=== PATIENT | male | born 1980 | race Caucasian/White ===

== ENCOUNTER 2018-02-04 16:39 | Emergency (ER) | payer OTHER ==
[~2018-02-04] VITALS: Ht 180.3 cm; Wt 70.3 kg
[2018-02-04 16:44] VITALS: Ht 180.3 cm; Wt 70.3 kg
[2018-02-04 20:58] LABS: BASOPHIL % 0.4 % (0-2); RED CELL DISTRIBUTION WIDTH 12.7 % (11.5-14.5)
[2018-02-04 21:00] LABS: PLATELET COUNT 477 x10^3mcL (130-400)
[2018-02-04 21:13] LABS: ALT/SGPT 29 U/L (16-63); CALCIUM 8.9 mg/dL (8.5-10.1); CHLORIDE SERUM 94 mmol/L (98-107); CREATININE SERUM 1.1 mg/dL (0.7-1.3); GFR1 > 60 mL/min; SODIUM SERUM 132 mmol/L (136-145)
[2018-02-04 21:14] LABS: ALKALINE PHOSPHATASE 170 U/L (46-116); AST/SGOT 20 U/L (15-37); BILIRUBIN TOTAL 0.48 mg/dL (0.20-1.00); CARBON DIOXIDE 27.7 mmol/L (21-32); LIPASE 56 IU/L (73-393); POTASSIUM SERUM 4.8 mmol/L (3.5-5.1); TOTAL PROTEIN, SERUM 7.1 g/dL (6.4-8.2)
[2018-02-04 21:16] LABS: ALBUMIN 2.4 g/dL (3.4-5.0); AMYLASE 12 U/L (25-115)
[2018-02-04 21:18] LABS: GLUCOSE SERUM 500 mg/dL (74-106)
[2018-02-04 23:27] VITALS: BP 129/88
== END 2018-02-04 23:27 | disposition home or self-care (01) ==
LOC: ED 16:39
PROVIDERS: Emergency Medicine
DX: L08.89 Other specified local infections of the skin and subcutaneous tissue (principal); E11.9 Type 2 diabetes mellitus without complications; Z79.4 Long term (current) use of insulin
CPT/HCPCS: 82962; 83880; J0690; J1815; J1885; J7030

== ENCOUNTER 2019-07-01 17:30 | Emergency (ER) | payer SELFPAY ==
[~2019-07-01] VITALS: Ht 180.3 cm; Wt 75.3 kg
[2019-07-01 17:53] VITALS: Ht 180.3 cm; Wt 75.3 kg
[2019-07-01 18:42] LABS: BASOPHIL % 0.3 % (0-2); PLATELET COUNT 300 x10^3mcL (130-400); RED CELL DISTRIBUTION WIDTH 12.5 % (11.5-14.5)
[2019-07-01 19:18] LABS: ALKALINE PHOSPHATASE 136 U/L (46-116); ALT/SGPT 38 U/L (16-63); AST/SGOT 13 U/L (15-37); BILIRUBIN TOTAL 0.4 mg/dL (0.20-1.00); CHLORIDE SERUM 91 mmol/L (98-107); CREATININE SERUM 1.5 mg/dL (0.7-1.3); GFR1 55 mL/min; POTASSIUM SERUM 4.3 mmol/L (3.5-5.1); SODIUM SERUM 125 mmol/L (136-145)
[2019-07-01 19:19] LABS: ALBUMIN 2.7 g/dL (3.4-5.0)
[2019-07-01 19:20] LABS: GLUCOSE SERUM 712 mg/dL (74-106)
[2019-07-01 21:54] VITALS: BP 110/61
== END 2019-07-01 21:50 | disposition left against medical advice (07) ==
LOC: ED 17:30
PROVIDERS: Emergency Medicine
DX: L03.113 Cellulitis of right upper limb (principal); E11.65 Type 2 diabetes mellitus with hyperglycemia
CPT/HCPCS: 82962; J2543; J3370; J7030; J7040; J7050

== ENCOUNTER 2019-08-05 12:23 | Emergency (ER) | payer SELFPAY ==
[~2019-08-05] VITALS: Ht 180.3 cm; Wt 72.6 kg
[2019-08-05 12:35] VITALS: Ht 180.3 cm; Wt 72.6 kg
[2019-08-05 14:19] LABS: BASOPHIL % 0.3 % (0-2); PLATELET COUNT 341 x10^3mcL (130-400); RED CELL DISTRIBUTION WIDTH 12.7 % (11.5-14.5)
[2019-08-05 14:25] LABS: microscopic required? NO
[2019-08-05 14:33] LABS: ALKALINE PHOSPHATASE 167 U/L (46-116); ALT/SGPT 32 U/L (16-63); AST/SGOT 12 U/L (15-37); BILIRUBIN TOTAL 0.24 mg/dL (0.20-1.00); CALCIUM 8.2 mg/dL (8.5-10.1); CARBON DIOXIDE 29.8 mmol/L (21-32); CHLORIDE SERUM 94 mmol/L (98-107); CREATININE SERUM 1.2 mg/dL (0.7-1.3); GFR1 > 60 mL/min; POTASSIUM SERUM 4.3 mmol/L (3.5-5.1); SODIUM SERUM 131 mmol/L (136-145); TOTAL PROTEIN, SERUM 7.3 g/dL (6.4-8.2)
[2019-08-05 14:34] LABS: ALBUMIN 3.2 g/dL (3.4-5.0)
[2019-08-05 14:36] LABS: GLUCOSE SERUM 516 mg/dL (74-106)
[2019-08-05 14:57] LABS: UA SPECIFIC GRAVITY <=1.005 (1.005-1.035); urine erythrocyte NEGATIVE (NEGATIVE)
[2019-08-05 16:03] VITALS: BP 119/75
== END 2019-08-05 16:03 | disposition home or self-care (01) ==
LOC: ED 12:23
PROVIDERS: Emergency Medicine
DX: L02.512 Cutaneous abscess of left hand (principal); E11.65 Type 2 diabetes mellitus with hyperglycemia
CPT/HCPCS: 82962; J7030

== ENCOUNTER 2019-09-11 12:39 | Emergency (ER) | payer MEDICAID ==
[~2019-09-11] VITALS: Ht 180.3 cm; Wt 68.9 kg
[2019-09-11 12:52] VITALS: Ht 180.3 cm; Wt 68.9 kg
[2019-09-11 14:03] LABS: BASOPHIL % 0.4 % (0-2); PLATELET COUNT 313 x10^3mcL (130-400); RED CELL DISTRIBUTION WIDTH 12.3 % (11.5-14.5)
[2019-09-11 14:34] LABS: ALKALINE PHOSPHATASE 188 U/L (46-116); ALT/SGPT 58 U/L (16-63); AST/SGOT 27 U/L (15-37); BILIRUBIN TOTAL 0.4 mg/dL (0.20-1.00); CALCIUM 8.1 mg/dL (8.5-10.1); CARBON DIOXIDE 23.4 mmol/L (21-32); CHLORIDE SERUM 93 mmol/L (98-107); CREATININE SERUM 1.1 mg/dL (0.7-1.3); GFR1 > 60 mL/min; POTASSIUM SERUM 4.4 mmol/L (3.5-5.1); SODIUM SERUM 128 mmol/L (136-145); TOTAL PROTEIN, SERUM 6.5 g/dL (6.4-8.2)
[2019-09-11 14:37] LABS: ALBUMIN 3.1 g/dL (3.4-5.0)
[2019-09-11 14:38] LABS: GLUCOSE SERUM 592 mg/dL (74-106)
[2019-09-11 17:20] VITALS: BP 106/65
== END 2019-09-11 17:20 | disposition home or self-care (01) ==
LOC: ED 12:39
PROVIDERS: Emergency Medicine
DX: S40.022A Contusion of left upper arm, initial encounter (principal); E11.65 Type 2 diabetes mellitus with hyperglycemia; M79.631 Pain in right forearm; F15.10 Other stimulant abuse, uncomplicated; X58.XXXA Exposure to other specified factors, initial encounter; Y93.89 Activity, other specified; Y92.89 Other specified places as the place of occurrence of the external cause; Y99.8 Other external cause status
CPT/HCPCS: 82962; J1815; J7030

== ENCOUNTER 2019-11-10 21:55 | Emergency (ER) | payer MEDICAID ==
[~2019-11-10] VITALS: Ht 175.3 cm; Wt 73.5 kg
[2019-11-10 22:01] VITALS: Ht 175.3 cm; Wt 73.5 kg
[2019-11-10 22:57] LABS: CALCIUM 8.8 mg/dL (8.5-10.1); CARBON DIOXIDE 29.5 mmol/L (21-32); CREATININE SERUM 1.5 mg/dL (0.7-1.3); POTASSIUM SERUM 4.5 mmol/L (3.5-5.1)
[2019-11-10 23:45] VITALS: BP 108/63
== END 2019-11-10 23:45 | disposition home or self-care (01) ==
LOC: ED 21:55
PROVIDERS: Emergency Medicine
DX: L02.413 Cutaneous abscess of right upper limb (principal); E11.65 Type 2 diabetes mellitus with hyperglycemia; F15.10 Other stimulant abuse, uncomplicated
CPT/HCPCS: 36415; 82962; J2001

== ENCOUNTER 2020-01-27 13:50 | Emergency (ER) | payer OTHER ==
[~2020-01-27] VITALS: Ht 180.3 cm; Wt 76.7 kg
[2020-01-27 13:54] VITALS: Ht 180.3 cm; Wt 76.7 kg
[2020-01-27 15:15] LABS: BASOPHIL % 0.3 % (0-2); PLATELET COUNT 406 x10^3mcL (130-400); RED CELL DISTRIBUTION WIDTH 13.5 % (11.5-14.5)
[2020-01-27 15:22] LABS: ALKALINE PHOSPHATASE 168 U/L (46-116); ALT/SGPT 66 U/L (16-63); AST/SGOT 43 U/L (15-37); BILIRUBIN TOTAL 0.2 mg/dL (0.20-1.00); CALCIUM 8.1 mg/dL (8.5-10.1); CARBON DIOXIDE 27.7 mmol/L (21-32); CHLORIDE SERUM 93 mmol/L (98-107); CREATININE SERUM 1.1 mg/dL (0.7-1.3); GFR1 > 60 mL/min; POTASSIUM SERUM 4.7 mmol/L (3.5-5.1); SODIUM SERUM 126 mmol/L (136-145); TOTAL PROTEIN, SERUM 6.8 g/dL (6.4-8.2)
[2020-01-27 15:29] LABS: ALBUMIN 2.9 g/dL (3.4-5.0); GLUCOSE SERUM 666 mg/dL (74-106)
[2020-01-27 19:16] VITALS: BP 110/74
== END 2020-01-27 19:16 | disposition home or self-care (01) ==
LOC: ED 13:50
PROVIDERS: Emergency Medicine
DX: L03.114 Cellulitis of left upper limb (principal); E11.65 Type 2 diabetes mellitus with hyperglycemia
CPT/HCPCS: J3490; J7030; Q0092

== ENCOUNTER 2020-02-21 14:54 | Inpatient (IN) | payer OTHER ==
[~2020-02-21] VITALS: Ht 180.3 cm; Wt 68.2 kg
[~2020-02-21 14:54] MED LIST: HUMI SC; LISINOPRIL2.5 MG PO; NOVOLIN N100 U/ML SC; SULFAMETH/TRIME1 TA3
[2020-02-21 15:21] VITALS: Ht 180.3 cm; Wt 68.2 kg
[2020-02-21 16:19] LABS: BASOPHIL % 0.3 % (0-2); PLATELET COUNT 399 x10^3mcL (130-400); RED CELL DISTRIBUTION WIDTH 12.9 % (11.5-14.5)
[2020-02-21 16:52] LABS: ALBUMIN 2.6 g/dL (3.4-5.0); ALKALINE PHOSPHATASE 187 U/L (46-116); ALT/SGPT 56 U/L (16-63); AST/SGOT 18 U/L (15-37); BILIRUBIN TOTAL 0.39 mg/dL (0.20-1.00); TOTAL PROTEIN, SERUM 6.4 g/dL (6.4-8.2)
[2020-02-21 16:58] LABS: CALCIUM 8.8 mg/dL (8.5-10.1); CARBON DIOXIDE 22.8 mmol/L (21-32); CREATININE SERUM 1.4 mg/dL (0.7-1.3); POTASSIUM SERUM 4.7 mmol/L (3.5-5.1)
[2020-02-22 00:40] VITALS: BP 99/58
[2020-02-22 00:55] LABS: MAGNESIUM 2.4 mg/dL (1.8-2.4); PHOSPHOROUS 4.7 mg/dL (2.5-4.9)
[2020-02-22 01:02] LABS: T3 TOTAL 0.71 ng/mL
[2020-02-22 04:13] LABS: FREE T4 1.27 ng/dL (0.76-1.46); FREE THYROXINE INDEX 2.1 ug/dL (1.4-4.5); T4(THYROXINE) 6.5 ug/dL (4.7-13.3)
[2020-02-22 05:43] VITALS: BP 107/65
[2020-02-22 06:24] LABS: CALCIUM 8.2 mg/dL (8.5-10.1); CARBON DIOXIDE 28.2 mmol/L (21-32); CHLORIDE SERUM 98 mmol/L (98-107); CREATININE SERUM 1.1 mg/dL (0.7-1.3); GFR1 > 60 mL/min; GLUCOSE SERUM 413 mg/dL (74-106); MAGNESIUM 1.9 mg/dL (1.8-2.4); PHOSPHOROUS 3.4 mg/dL (2.5-4.9); POTASSIUM SERUM 4.5 mmol/L (3.5-5.1); SODIUM SERUM 135 mmol/L (136-145)
[2020-02-22 07:27] LABS: BASOPHIL % 0.1 % (0-2); PLATELET COUNT 381 x10^3mcL (130-400); RED CELL DISTRIBUTION WIDTH 13.8 % (11.5-14.5)
[2020-02-22 07:56] VITALS: BP 113/78
[2020-02-22 11:46] VITALS: BP 102/65
[2020-02-22 14:41] LABS: microscopic required? NO
[2020-02-22 14:55] LABS: UA SPECIFIC GRAVITY 1.015 (1.005-1.035); urine erythrocyte NEGATIVE (NEGATIVE)
[2020-02-22 15:24] LABS: AMPHETAMINE QUAL UR NONE DETECTED (See below)
[2020-02-22 16:45] VITALS: BP 119/64
[2020-02-22 19:15] VITALS: BP 114/69
[2020-02-23 05:28] VITALS: BP 104/53
[2020-02-23 06:40] LABS: BASOPHIL % 0.2 % (0-2); PLATELET COUNT 324 x10^3mcL (130-400); RED CELL DISTRIBUTION WIDTH 13.4 % (11.5-14.5)
[2020-02-23 07:08] LABS: CALCIUM 7.9 mg/dL (8.5-10.1); CARBON DIOXIDE 27.1 mmol/L (21-32); CHLORIDE SERUM 106 mmol/L (98-107); CREATININE SERUM 0.8 mg/dL (0.7-1.3); GFR1 > 60 mL/min; GLUCOSE SERUM 187 mg/dL (74-106); MAGNESIUM 1.9 mg/dL (1.8-2.4); PHOSPHOROUS 3.5 mg/dL (2.5-4.9); POTASSIUM SERUM 3.6 mmol/L (3.5-5.1); SODIUM SERUM 140 mmol/L (136-145)
[2020-02-23 08:31] VITALS: BP 133/83
[2020-02-23] MEDS ORDERED: HUMALOG MIX 50/10 ML SC (10:45)
[2020-02-23] MEDS ORDERED: HUMULIN N100 U/1 ML SC ×2 (10:45→10:54)
[2020-02-23] MEDS ORDERED: HUMULIN R100 U/1 M1 SC (10:59)
[2020-02-23 12:31] VITALS: BP 123/77
[2020-02-23 17:38] VITALS: BP 123/77
== END 2020-02-23 18:17 | disposition home or self-care (01) | DRG 420 ==
LOC: ED 14:54 → DU 23:17
PROVIDERS: Emergency Medicine; ADMIT Internal Medicine
DX: E13.00 Other specified diabetes mellitus with hyperosmolarity without nonketotic hyperglycemic-hyperosmolar coma (NKHHC) (principal); N17.0 Acute kidney failure with tubular necrosis; E44.0 Moderate protein-calorie malnutrition; E87.8 Other disorders of electrolyte and fluid balance, not elsewhere classified; R65.10 Systemic inflammatory response syndrome (SIRS) of non-infectious origin without acute organ dysfunction; F15.10 Other stimulant abuse, uncomplicated; E87.1 Hypo-osmolality and hyponatremia; E86.0 Dehydration; Z79.4 Long term (current) use of insulin; Z87.891 Personal history of nicotine dependence; Z59.0 Homelessness; Z68.20 Body mass index [BMI] 20.0-20.9, adult; Z56.0 Unemployment, unspecified
CPT/HCPCS: 82962; 83880; 84439; G0378; J0696; J1815; J3370; J7030; J7050; J7060; J7120; Q0092

== ENCOUNTER 2020-06-04 16:26 | Inpatient (IN) | payer MEDICAID ==
[~2020-06-04] VITALS: Ht 180.3 cm; Wt 71.8 kg
[~2020-06-04 16:26] MED LIST changes: +HUMALOG MIX 50/10 ML SC; +HUMULIN N100 U/1 ML SC; +HUMULIN R100 U/1 M1 SC
[2020-06-04 16:27] VITALS: Ht 180.3 cm; Wt 71.8 kg
--- NOTE | 2020-06-04 16:38 | NUR ---
BROUGHT IN BY AMBULANCE AWAKE ALERT, STATED HIS DRUGA WERE STOLEN 3 DAYS AGO,DID NOT HASD HIS INSULIN OR ELIQUES,STATEDHAS BLOOD CLOTT IN LT SHOULDER, BLOOD SUGAR WAS HIGH IN FIELD,
--- NOTE | 2020-06-04 16:43 | NUR ---
PER MEDIC PT IS HARDSTICK WITH HX OF IVDA. FAILED IV ATTEMPTS IN FIELD.
--- NOTE | 2020-06-04 16:44 | NUR ---
RT AT BEDSIDE FOR ABG.
--- NOTE | 2020-06-04 16:46 | NUR ---
PT ADMITS TO IV METH USE AND DENIES IV OPIOD USE
--- NOTE | 2020-06-04 16:56 | NUR ---
INFORMED DR HUTCHINS PT IS HARDSTICK. L EXT JUGULAR IV EST BY ANTOINE MANUEL
[2020-06-04 17:08] LABS: BASOPHIL % 0.3 % (0-2); PLATELET COUNT 417 x10^3mcL (130-400); RED CELL DISTRIBUTION WIDTH 12.5 % (11.5-14.5)
--- NOTE | 2020-06-04 17:15 | NUR ---
PER DR HUTCHINS, HE WILL ATTEMPT ANOTHER IV INSERTION VIA US GUIDANCE
[2020-06-04 17:22] LABS: ALKALINE PHOSPHATASE 191 U/L (46-116); ALT/SGPT 48 U/L (16-63); AST/SGOT 19 U/L (15-37); C REACTIVE PROTEIN 1.7 mg/dL (<=0.9); CALCIUM 8.9 mg/dL (8.5-10.1); CARBON DIOXIDE 15.5 mmol/L (21-32); CHLORIDE SERUM 91 mmol/L (98-107); CREATININE SERUM 1.3 mg/dL (0.7-1.3); GFR1 > 60 mL/min; POTASSIUM SERUM 5.1 mmol/L (3.5-5.1); SODIUM SERUM 129 mmol/L (136-145); TOTAL PROTEIN, SERUM 7.3 g/dL (6.4-8.2)
--- NOTE | 2020-06-04 17:23 | NUR ---
DR HUTCHINS AT BEDSIDE FOR REASSESSMENT
[2020-06-04 17:24] LABS: ALBUMIN 3.3 g/dL (3.4-5.0)
[2020-06-04 17:26] LABS: GLUCOSE SERUM 526 mg/dL (74-106)
[2020-06-04 17:29] LABS: T3 TOTAL 0.98 ng/mL
[2020-06-04 17:40] LABS: FREE T4 1.5 ng/dL (0.76-1.46); FREE THYROXINE INDEX 3.6 ug/dL (1.4-4.5); T4(THYROXINE) 9.8 ug/dL (4.7-13.3)
[2020-06-04 18:01] LABS: ERYTHROCYTE SED RATE 15 mm/hr (0-15)
--- NOTE | 2020-06-04 18:20 | NUR ---
DR HUTCHINS INSERTED IV VIA US TO R UPPER EXT.
[2020-06-04 18:23] LABS: microscopic required? NO
--- NOTE | 2020-06-04 18:29 | NUR ---
PT ON RIGHT SIDE LYING POSITION AND REQUESTING TO LAY FLAT. CALL LIGHT IN REACH.
[2020-06-04 18:42] LABS: UA SPECIFIC GRAVITY 1.025 (1.005-1.035); urine erythrocyte NEGATIVE (NEGATIVE)
--- NOTE | 2020-06-04 18:54 | NUR ---
INSULIN DRIP INITIATED AT 6 UNITS/HOUR
[2020-06-04 19:08] LABS: AMPHETAMINE QUAL UR POSITIVE (See below)
--- NOTE | 2020-06-04 19:09 | NUR ---
REPORT GIVEN TO CHAMP MANUEL
--- NOTE | 2020-06-04 19:30 | NUR ---
FINGERSTICK BLOOD SUGAR IS 354MG/DL. PATIENT IS REQUESTING BROYH OR PUDDING/SUGAR FREE. INSULIN DRIP IS NFUSING @ 6 UNITS/HR
--- NOTE | 2020-06-04 20:06 | NUR ---
NOTIFIED RE BLOOD SUGAR AND THE INSULIN DRIP PROTOCAL, FOR ABOVE 350 DRIP TO 5 UNITS. THE DRIP IS INFUSING @ 6 UNITS/HR. NO CHANGE WAS MD. AWARE.
--- NOTE | 2020-06-04 20:30 | NUR ---
INSULIN DRIP RATE CHANGE TO 3 UNITS/HR. FINGERSTICK BLOOD SUGAR IS 294 MG/DL
[2020-06-04 21:11] LABS: CALCIUM 8.2 mg/dL (8.5-10.1); CARBON DIOXIDE 18.1 mmol/L (21-32); CHLORIDE SERUM 101 mmol/L (98-107); CREATININE SERUM 1.1 mg/dL (0.7-1.3); GFR1 > 60 mL/min; GLUCOSE SERUM 289 mg/dL (74-106); POTASSIUM SERUM 4.6 mmol/L (3.5-5.1); SODIUM SERUM 135 mmol/L (136-145)
--- NOTE | 2020-06-04 21:18 | NUR ---
REPORT WAS GIVEN TO ARGELIA. PATIENT WILL BE TRANSPORTED TO ICU 2.
--- NOTE | 2020-06-04 21:35 | NUR ---
INSULIN DRIP RATE DECREASED TO 2 UNITS/HR. FINGERSTICK BLOOD SUGAR IS 250 MG/DL.
--- NOTE | 2020-06-04 21:44 | NUR ---
REPOR WAS GIVEN , BUT THE PATIENT CANNOT GO TO ICU YET.
--- NOTE | 2020-06-04 22:32 | NUR ---
PATIENT STOOD AT THE BEDSIDE AND VOID. FINGERSTICK BLOOD SUGAR IS 289 MG/DL.
--- NOTE | 2020-06-04 22:34 | NUR ---
INSULIN DRIP INCREASED TO 3 UNITS/HR PER PROTOCAL.
--- NOTE | 2020-06-05 00:15 | NUR ---
PATIENT TRANSPORTED TO ICU 1
[2020-06-05 00:51] VITALS: BP 143/90
--- NOTE | 2020-06-05 01:33 | NUR ---
Admitted this 39 y/o male from ED Dx: DKA. Alert and oriented. No respiratory distress noted on room air. Denies pain at this time. Denies n/v. Easily gets agitated, wanted to eat despite NPO status explained. Resident on line csr notified. On insulin drip 0.05u/kg/hr. Admission assessment done. In no apparent distress. Will cont.to monitor.
[2020-06-05 02:18] LABS: CALCIUM 8.5 mg/dL (8.5-10.1); CARBON DIOXIDE 26.7 mmol/L (21-32); CHLORIDE SERUM 103 mmol/L (98-107); CREATININE SERUM 1.1 mg/dL (0.7-1.3); GFR1 > 60 mL/min; GLUCOSE SERUM 185 mg/dL (74-106); POTASSIUM SERUM 4.4 mmol/L (3.5-5.1); SODIUM SERUM 138 mmol/L (136-145)
[2020-06-05 03:28] LABS: MAGNESIUM 2.4 mg/dL (1.8-2.4); PHOSPHOROUS 5.4 mg/dL (2.5-4.9)
--- NOTE | 2020-06-05 04:11 | NUR ---
Afebrile. No significant change in condition noted. Remained on insulin drip. Cont.to monitor blood sugar and lab values. In no apparent distress. No s/s of hypo/hyperglycemia noted.
[2020-06-05 04:12] VITALS: BP 118/62
[2020-06-05 05:26] LABS: CALCIUM 8.4 mg/dL (8.5-10.1); CHLORIDE SERUM 103 mmol/L (98-107); CREATININE SERUM 1.1 mg/dL (0.7-1.3); GFR1 > 60 mL/min; GLUCOSE SERUM 188 mg/dL (74-106); MAGNESIUM 2.1 mg/dL (1.8-2.4); PHOSPHOROUS 2.4 mg/dL (2.5-4.9); SODIUM SERUM 138 mmol/L (136-145)
[2020-06-05 06:23] LABS: BASOPHIL % 0.3 % (0-2); PLATELET COUNT 437 x10^3mcL (130-400); RED CELL DISTRIBUTION WIDTH 12.3 % (11.5-14.5)
[2020-06-05 08:00] VITALS: BP 127/76
--- NOTE | 2020-06-05 08:31 | NUR ---
AT 0745 - RECEIVED PATIENT FROM NIGHT NURSE. AWAKE, ALERT AND ORIENTED. C/O BEING HUNGRY. CN CALLED THE DOCTOR AND OBTAINED DIET ORDER. MONITOR SHOWING SINUS RHYHTM; RATE 90'S. BP WNL. ON ROOM AIR. AT 0830 - EATING BREAKFAST.
[2020-06-05 09:16] LABS: CALCIUM 8.3 mg/dL (8.5-10.1); CARBON DIOXIDE 24.1 mmol/L (21-32); CHLORIDE SERUM 103 mmol/L (98-107); GFR1 > 60 mL/min; GLUCOSE SERUM 223 mg/dL (74-106); POTASSIUM SERUM 4.3 mmol/L (3.5-5.1); SODIUM SERUM 137 mmol/L (136-145)
--- NOTE | 2020-06-05 09:55 | NUR ---
AT 0905 - GIVEN 10 UNITS LANTUS PER EMAR. PATIETN HAS EATEN BREAKFAST. RECEIVED TRANSFER TO [facility]; AWAITING BED ALLOCATION. AT 0950 - UNTRASOUND AT BEDSIDE.
[2020-06-05 12:00] VITALS: BP 134/81
--- NOTE | 2020-06-05 12:20 | NUR ---
AT 1145 - BLOOD GLUCOSE LEVEL 469. REPEAT WAS 465. SPOKE WITH DR FIGUEROA. OK TO FOLLOW PROTOCOL. PATIENT TO RECEIVE REGULAR INSULIN PER SLIDING SCALE. NO ADDITIONAL INSULIN REQUIRED. GIVEN 21 UNITS REGULAR INSULIN. PATIENT ALREADY HAVING BLOOD DRAWN FOR BNP; WILL CHECK GLUCOSE LEVEL ON THAT DRAW. AT 1210 - PATIENT TOT TRANSFER TO BED 242 B. REPORT GIVEN TO KALEB PAVON. PATIENT EATING LUNCH. WILL TRANSFER AFTER LUNCH.
--- NOTE | 2020-06-05 12:51 | NUR ---
AWAKE, ALERT AND OREINTED X 4. VSS. AFEBRILE. HAS EATEN LUNCH. VOIDING IN URINAL. GOOD OUTPUT. TRANSFERRED TO [address] [place] [address]. CARE ENDORSED TO KALEB PAVON.
--- NOTE | 2020-06-05 13:21 | NUR ---
PATIENT ARRIVED FROM ICU. RECEIVED REPORT FROM CARITO. A&OX4, FOLLOWS COMMANDS AND COOPERATES WELL. TELE #6, NSR W/ ELEVATED ST WAVE, DENIES CHEST PAIN. PERIPHERAL PULSES PALPABLE W/ NO SIGNS OF EDEMA. LUNG SOUNDS CTA BILATERALLY, ON RA, O2 SAT 98%, DENIES SOB. DENIES ABD PAIN, NORMOACTIVE BSX4, ABD SOFT AND ROUND. VOIDS USING URINAL AND RESTROOM. AMBULATORY. SKIN IS INTACT. IV SITE IS CDI. WILL CONTINUE TO MONITOR PATIENT.
[2020-06-05 16:59] VITALS: BP 109/64
--- NOTE | 2020-06-05 18:35 | NUR ---
P.T. NOTES P.T. EVAL COMPLETED, AMBULATORY WITHOUT ASST DEVICE; ENDORSED TO NURSING
--- NOTE | 2020-06-05 18:41 | NUR ---
PATIENT IS SLEEPING AND RESTING AT THIS TIME. BS WAS 231 WITH RECHECK. PATIENT REMAINS HUNGRY, BUT IS COMFORTABLE. WILL ENDORSE TO [employer] ADMINISTRATOR NURSE.
--- NOTE | 2020-06-05 19:30 | NUR ---
REC'D PT FROM DAY NURSE. PT RESTING IN BED. AAOX4, SPEECH CLEAR, FOLLOWS COMMANDS. TELE 6. DENIES CP, DIZZINESS, OR PALPITATIONS. DENIES RESP DISTRESS OR SOB. BREATHING EVEN/UNLABORED ON RA. NO EDEMA NOTED. ABD SOFT/ROUND. DENIES ABD PAIN, TENDERNESS, OR N/V. VOIDING FREELY. MILD GEN WEAKNESS. AMBULATORY. BUE SCABS AND L KNEE SCAB BILL. NO COMPLAINTS OF PAIN AT THIS TIME. IV TO LEJ FLUSHED AND PATENT, SITE WNL. CALL LIGHT WITHIN REACH, BED AT LOWEST POSITION. WILL CONTINUE TO MONITOR.
[2020-06-05 20:35] VITALS: BP 107/64
--- NOTE | 2020-06-06 01:22 | NUR ---
PT RESTING IN BED WITH EYES CLOSED. NO SIGNS OF DISTRESS OR PAIN NOTED. BREATHING EVEN/UNLABORED ON RA. CALL LIGHT WITHIN REACH, BED AT LOWEST POSITION. WILL CONTINUE TO MONITOR.
--- NOTE | 2020-06-06 05:17 | NUR ---
DR. HARDEN MADE AWARE OF PT'S HX OF DVT AND PT WAS TAKING ELIQUIS PREVIOUSLY. ONLY ONE DOSE OF ELIQUIS GIVEN THIS ADMISSION. RECOMMENDED TO CONTINUE. STATED WILL ORDER.
[2020-06-06 05:38] VITALS: BP 116/72
--- NOTE | 2020-06-06 05:52 | NUR ---
PT AWAKE AND RESTING IN BED. NO COMPLAINTS AT THIS TIME. DENIES ANY PAIN. BS 235 AND COVERED WITH 6 UNITS OF INSULIN. PT HAS BEEN SNACKING THROUGHOUT THE NIGHT. DR. HERNANDEZ AWARE. NO SIGNIFICANT CHANGES DURING SHIFT. CALL LIGHT WITHIN REACH, BED AT LOWEST POSITION. WILL ENDORSE TO DAY NURSE.
[2020-06-06 07:17] LABS: CALCIUM 8.4 mg/dL (8.5-10.1); CARBON DIOXIDE 27.5 mmol/L (21-32); CHLORIDE SERUM 101 mmol/L (98-107); CREATININE SERUM 0.7 mg/dL (0.7-1.3); GFR1 > 60 mL/min; GLUCOSE SERUM 249 mg/dL (74-106); MAGNESIUM 2.3 mg/dL (1.8-2.4); PHOSPHOROUS 3.4 mg/dL (2.5-4.9); POTASSIUM SERUM 5.5 mmol/L (3.5-5.1); SODIUM SERUM 132 mmol/L (136-145)
[2020-06-06 07:21] LABS: BASOPHIL % 0.3 % (0-2); PLATELET COUNT 368 x10^3mcL (130-400); RED CELL DISTRIBUTION WIDTH 13.1 % (11.5-14.5)
[2020-06-06 09:28] VITALS: BP 106/69
--- NOTE | 2020-06-06 10:57 | NUR ---
Received report from RN at 0700. patient remains in bed, sleeping. tele in place. patient appears in no apparent distress. will continue to monitor
[2020-06-06 12:02] VITALS: BP 107/78
[2020-06-06 16:26] VITALS: BP 91/51
--- NOTE | 2020-06-06 17:52 | NUR ---
PATIENT A&OX4, ROOM AIR, VITALS STABLE, NSR ON THE MONITOR, VOIDING IN BATHROOM, UP AD YENY. TOLERATING DIABETIC DIET WITH NO C/O N/V. ACCUCHECKS AC/HS WITH COVERAGE. EDUCATED PATIENT NUMEROUS TIME REGARDING BLOOD GLUCOSE MAINTANENCE. BUE AND BLE WITH SCABS PRESENT. LEFT EJ PIV PATENT AND SALINE LOCKED. ONE DOSE OF LANTUS 30 UNITS GIVEN THIS MORNING PER ORDER. PLAN TO HAVE INTERVIEW WITH ENGINE ASSEMBLER TOMORROW FOR DISCHARGE PLANNING. CALL LIGHT AND BEDSIDE TABLE WITHIN REACH. NEEDS ATTENDED. WILL CONTINUE TO MONITOR
--- NOTE | 2020-06-06 18:32 | NUR ---
PATIENT IS VERY NONCOMPLIANT WITH DIET ORDERS. HE IS CONSTANTLY REQUESTING SNACKS AND CAN BECOME AGITATED IF NOT BROUGHT TO HIM. EDUCATED PATIENT REGARDING DIET ORDERS AND IMPORTANCE OF REMAINING COMPLIANT TO PREVENT FURTHER ELEVATION OF GLUCOSE LEVELS. PATIENT BECAME AGITATED. COFFEE PROVIDED TO PATIENT WITH ZERO SUGAR SWEETNER AND SUGAR FREE PUDDING. WILL CONTINUE TO EDUCATE AND MONITOR.
--- NOTE | 2020-06-06 19:35 | NUR ---
PATIENT RESTING IN BED, A/0 X4, VERBALLY RESPONSIVE, DENIES DIZZINESS AND HEADACHE. BREATHING E/U ON ROOM AIR 97%, DENIES SOB AND PAIN. TELE #6, SINUS RHYTHM, HR 97. ABD SOFT AND ROUND. NO EDEMA NOTED. PATIENT REQUESTED TO USE SHOWER, WILL NOTIFY PHYSICIAN. IV @ LEFT JUGULAR, FLUSHED AND SALINE LOCKED. CALL LIGHT WITHIN REACH, BED IN LOWEST POSITION. WILL CONTINUE TO MONITOR.
--- NOTE | 2020-06-06 19:46 | NUR ---
DR. HARDEN MADE AWARE OF PATIENT'S REQUEST TO SHOWER, HE STATED THAT HE WILL PLACE AN ORDER.
--- NOTE | 2020-06-06 20:32 | NUR ---
ORDERED PLACE FOR SHOWER PRVILEGES AND TO TRANSFER PATIENT TO [facility]. WENT TO PATIENT'S ROOM, PATIENT IS CURRENTLY SHOWERING. WILL CONTINUE TO MONITOR.
--- NOTE | 2020-06-06 20:54 | NUR ---
PATIENT HAS A CURRENT ORDER FOR NPO @ MIDNIGHT FOR CYSTOSCOPY HOWEVER PATIENT DOES NOT HAVE A PROCEDURE SCHEDULED. DR. HARDEN MADE AWARE, HE WILL REMOVE NPO ORDER.
--- NOTE | 2020-06-06 21:00 | NUR ---
PATIENT TRANSFERRED TO [facility]. REMOVED TELE BOX AND LEADS OFF OF PATIENT.
[2020-06-06 21:54] VITALS: BP 115/69
--- NOTE | 2020-06-07 03:40 | NUR ---
DR. HARMAN MADE AWARE THAT THERE IS NO ACTIVE DIET ORDER AT THIS TIME, PATIENT HAD BEEN PLACED ON DIABETIC DIET BEFORE. HE STATED THAT HE WILL PLACE DIABETIC ORDER.
[2020-06-07 05:45] VITALS: BP 116/62
--- NOTE | 2020-06-07 06:20 | NUR ---
PATIENT RESTING IN BED, BREATHING E/U ON ROOM AIR, SPO2 99%. DENIES SOB AND PAIN. NO SIGNIFICANT CHANGES DURING SHIFT, CALL LIGHT WITHIN REACH, SAFETY PRECAUTIONS MAINTAINED THROUGHOUT SHIFT. WILL ENDORSE CARE TO DAY NURSE.
[2020-06-07 07:17] LABS: CARBON DIOXIDE 29.2 mmol/L (21-32); CHLORIDE SERUM 99 mmol/L (98-107); CREATININE SERUM 0.8 mg/dL (0.7-1.3); GFR1 > 60 mL/min; GLUCOSE SERUM 288 mg/dL (74-106); PHOSPHOROUS 4.1 mg/dL (2.5-4.9); SODIUM SERUM 135 mmol/L (136-145)
[2020-06-07 10:55] VITALS: BP 126/80
[2020-06-07] MEDS ORDERED: ELIQUIS2.5 MG PO (11:12)
[2020-06-07] MEDS ORDERED: ZES5 PO (11:12)
[2020-06-07] MEDS ORDERED: MIRUD PO (11:13)
[2020-06-07 13:01] VITALS: BP 126/80
[2020-06-07 13:29] VITALS: BP 143/85
== END 2020-06-07 14:11 | disposition home or self-care (01) | DRG 420 ==
LOC: ED 16:26 → MU 18:32 → IC 18:32 → DU 06-05 13:17 → MU 06-06 20:58
PROVIDERS: Specialist; ADMIT Family Medicine; ATTEND Family Medicine
DX: E10.10 Type 1 diabetes mellitus with ketoacidosis without coma (principal); E10.42 Type 1 diabetes mellitus with diabetic polyneuropathy; E87.1 Hypo-osmolality and hyponatremia; F15.10 Other stimulant abuse, uncomplicated; E86.0 Dehydration; I10 Essential (primary) hypertension; F17.210 Nicotine dependence, cigarettes, uncomplicated; D47.3 Essential (hemorrhagic) thrombocythemia; Z59.0 Homelessness; Z86.718 Personal history of other venous thrombosis and embolism; Z79.01 Long term (current) use of anticoagulants; Z79.4 Long term (current) use of insulin; Z79.899 Other long term (current) drug therapy
CPT/HCPCS: 36569; 36600; 82962; 84439; 99406; G0378; G0480; J1815; J2405; J7030; J7040; Q0092

== ENCOUNTER 2020-07-06 23:03 | Emergency (ER) | payer OTHER ==
[~2020-07-06 23:03] MED LIST changes: +ELIQUIS2.5 MG PO; +MIRUD PO; +ZES5 PO
== END 2020-07-07 01:58 | disposition other institution (70) ==
LOC: ED 23:03
DX: Z02.89 Encounter for other administrative examinations (principal)

== ENCOUNTER 2020-07-06 23:03 | Emergency (ER) | payer MEDICAID ==
[~2020-07-06] VITALS: Ht 180.3 cm; Wt 77.1 kg
[2020-07-06 23:09] VITALS: Ht 180.3 cm; Wt 77.1 kg
[2020-07-07 00:14] LABS: BASOPHIL % 0.3 % (0-2); PLATELET COUNT 346 x10^3mcL (130-400); RED CELL DISTRIBUTION WIDTH 13.6 % (11.5-14.5)
[2020-07-07 00:20] LABS: ALKALINE PHOSPHATASE 118 U/L (46-116); ALT/SGPT 51 U/L (16-63); AST/SGOT 27 U/L (15-37); BILIRUBIN TOTAL 0.2 mg/dL (0.20-1.00); CALCIUM 8.8 mg/dL (8.5-10.1); CARBON DIOXIDE 31.5 mmol/L (21-32); CHLORIDE SERUM 98 mmol/L (98-107); CREATININE SERUM 1.3 mg/dL (0.7-1.3); GFR1 > 60 mL/min; SODIUM SERUM 133 mmol/L (136-145); TOTAL PROTEIN, SERUM 6.4 g/dL (6.4-8.2)
[2020-07-07 00:24] LABS: ALBUMIN 2.8 g/dL (3.4-5.0)
[2020-07-07 00:25] LABS: GLUCOSE SERUM 480 mg/dL (74-106)
[2020-07-07 01:58] VITALS: BP 110/71
== END 2020-07-07 01:58 | disposition other institution (70) ==
LOC: ED 23:03
PROVIDERS: Emergency Medicine
DX: L02.512 Cutaneous abscess of left hand (principal); E11.65 Type 2 diabetes mellitus with hyperglycemia; F15.10 Other stimulant abuse, uncomplicated; Z98.890 Other specified postprocedural states
CPT/HCPCS: 82962; J1815; J2001; Q0092

== ENCOUNTER 2021-01-30 14:26 | Emergency (ER) | payer MEDICAID, SELFPAY ==
[~2021-01-30] VITALS: Ht 172.7 cm; Wt 68.0 kg
[~2021-01-30 14:26] MED LIST changes: +ALCOH-WIPE1 EACH MC; +AUGMENTIN 875-1 EACH PO; +BACTRIM DS1 TAB PO; +BLOOD GLUCOSE1 EAC2 MC; +BLOOD LANCETS1 EACH TOP; +DORYX200 MG PO; +INSULIN SYRING1 EA29; +INSULIN SYRING1 EA29 SC; +LANTUS100 U/ML SC; +TEST STRIPS1 EACH MC
[2021-01-30 14:49] VITALS: Ht 172.7 cm; Wt 68.0 kg
[2021-01-30 16:36] LABS: BASOPHIL % 0.3 % (0.2-1.5); PLATELET COUNT 221 x10^3mcL (152-348); RED CELL DISTRIBUTION WIDTH 13.3 % (12.1-16.2)
[2021-01-30 16:43] LABS: CARBON DIOXIDE 28.7 mmol/L (21-32); CHLORIDE SERUM 91 mmol/L (98-107); CREATININE SERUM 1.1 mg/dL (0.7-1.3); GFR1 > 60 mL/min; GLUCOSE SERUM 118 mg/dL (74-106); POTASSIUM SERUM 3.8 mmol/L (3.5-5.1); SODIUM SERUM 127 mmol/L (136-145)
[2021-01-30 16:47] LABS: ALKALINE PHOSPHATASE 337 U/L (46-116); ALT/SGPT 231 U/L (16-63); AST/SGOT 400 U/L (15-37); BILIRUBIN TOTAL 0.2 mg/dL (0.20-1.00); TOTAL PROTEIN, SERUM 6.7 g/dL (6.4-8.2)
[2021-01-30 16:48] LABS: ALBUMIN 2.5 g/dL (3.4-5.0)
[2021-01-30] MEDS ORDERED: LOMOTIL1 TAB PO (17:23)
[2021-01-30] MEDS ORDERED: BACTRIM DS1 TAB PO (17:23)
[2021-01-30 18:29] VITALS: BP 137/88
== END 2021-01-30 18:29 | disposition home or self-care (01) ==
LOC: ED 14:26
PROVIDERS: Emergency Medicine
DX: K52.9 Noninfective gastroenteritis and colitis, unspecified (principal); E11.9 Type 2 diabetes mellitus without complications; Z20.828 Contact with and (suspected) exposure to other viral communicable diseases
CPT/HCPCS: J1885; J7030; U0003